=== PATIENT | female | born 1945 | race Caucasian/White ===

== ENCOUNTER 2023-08-24 14:32 | Emergency (ER) | payer MEDICARE, MEDICAID ==
[~2023-08-24] VITALS: Ht 160 cm; Wt 82.0 kg
[2023-08-24 14:44] VITALS: BP 148/76; PULSE 73; RESP 18; TEMP 98.5; O2SAT 98
[2023-08-24 15:35] LABS: CLARITY URINE CLEAR (CLEAR); COLOR URINE YELLOW (YELLOW); GLUCOSE URINE NEGATIVE (NEGATIVE); KETONES URINE NEGATIVE (NEGATIVE); LEUKOCYTE ESTERASE URINE 1+ (NEGATIVE); NITRITE URINE NEGATIVE (NEGATIVE); OCCULT BLOOD URINE TRACE (NEGATIVE); PH URINE 5.5 (4.5-8.0); PROTEIN URINE NEGATIVE (NEGATIVE); SPECIFIC GRAVITY URINE 1.011 (1.005-1.030)
[2023-08-24 15:57] LABS: BACTERIA URINE TRACE
[2023-08-24 15:58] LABS: RBC URINE 0-2 /hpf (0-2); SQUAMOUS EPITHELIAL CELL URINE 1+ /lpf (RARE/1+)
== END 2023-08-24 16:27 | disposition home or self-care (01) ==
LOC: ER 14:32
DX: M54.9 Dorsalgia, unspecified (principal)
CPT/HCPCS: 81003; 99282